=== PATIENT | female | born 1965 | race Caucasian/White ===

== ENCOUNTER → 2016-10-30 | Outpatient (CLI) | payer BC ==
--- NOTE | ~2016-10-30 | EKG ---
PATIENT: EUFEMIA LAMBERT UNIT #: [id number] Ventricular Rate: 63 BPM Atrial Rate: 63 BPM P-R Interval: 140 ms QRS Duration: 94 ms Q-T Interval: 410 ms QTC Calculation(Bezet): 419 ms P [place]: 51 degrees Calculated R [place]: 38 degrees Calculated T [place]: 48 degrees Diagnosis Line: Normal sinus rhythm Diagnosis Line: Low voltage QRS Diagnosis Line: Borderline ECG Diagnosis Line: No previous ECGs available Diagnosis Line: Confirmed by ANUSHA HAYDEN MD ([id number]) on 10/30/2016 Diagnosis Line: 11:43:04 PM INTERPRETING MD: CATRACHO CAMILO
[2016-10-30 17:49] LABS: BUN/CREATININE RATIO 22.5; CALCIUM SERUM 9.7 mg/dL (8.4-10.2); CREATININE SERUM 0.8 mg/dL (0.6-1.4); POTASSIUM 4.6 mmol/L (3.5-5.1)
== END | disposition home or self-care (01) ==
LOC: CLAB 16:58
PROVIDERS: Surgery Surgery of the Hand
DX: I10 Essential (primary) hypertension (principal); E11.9 Type 2 diabetes mellitus without complications
CPT/HCPCS: 36415; 80048; 93005